=== PATIENT | female | born 1945 | race Caucasian/White ===

== ENCOUNTER 2016-10-06 06:12 | Day surgery (SDC) | payer MEDICARE, OTHER ==
[2016-10-06] MEDS ORDERED: Lactated Ringers 1,000 ML IV SCH (06:30)
[2016-10-06 08:49] VITALS: O2SAT 100
--- NOTE | 2016-10-06 09:30 | OP ---
SURGERY DATE: 10/06/16 SURGERY TIME: 755 PREOPERATIVE DIAGNOSIS: 1. RECTAL BLEEDING. POSTOPERATIVE DIAGNOSIS: 1. NORMAL COLON. PROCEDURE: 1. Colonoscopy. SURGEON: Dr. Rivera. ANESTHESIA: MAC. Medications given by the Anesthesia Department. BRIEF HISTORY: The patient is a 71 y/o WF presenting now for complaints of rectal bleeding. The patient was appraised of the risks of the procedure including the risk of perforation, phlebitis, untoward reaction to medication, bleeding, and missed lesions. The patient verbalized her understanding and desired to have the procedure performed. DESCRIPTION OF PROCEDURE: The patient was given the medications by the Anesthesia Department. She had continuous pulse oximetry, ECG monitoring, intermittent BP monitoring, and end tidal CO2 monitoring during the examination. She was placed in the left lateral decubitus position. A digital rectal examination was performed and revealed normal anal sphincter tone and no masses. The flexible Olympus pediatric colonoscope was used to intubate the rectum. A view of the colon was developed sequentially to the cecum. Upon insertion and withdrawal, including a retroflex view in the rectum, no mucosal lesions were encountered. The scope was removed from the patient who tolerated the procedure well and was sent back to OP recovery in good condition. The prep was noted to be fair to good.
[2016-10-06 09:49] VITALS: BP 133/68; PULSE 57
[2016-10-06] MEDS ORDERED: DIPRIVAN 200 MG/20 ML IV ONE (15:26)
[2016-10-06] MEDS ORDERED: Ketamine HCl 50 MG/ML IV ONE (15:26)
== END 2016-10-06 09:54 | disposition home or self-care (01) ==
LOC: SDC 06:12
PROVIDERS: ATTEND Family Medicine
PROC: 0DJD8ZZ Inspection of Lower Intestinal Tract, Via Natural or Artificial Opening Endoscopic (ICD-10-PCS; principal; 2016-10-06)
DX: K62.5 Hemorrhage of anus and rectum (principal)
CPT/HCPCS: 00810; 99100; J2704

== ENCOUNTER 2020-04-17 06:29 | Day surgery (SDC) | payer MEDICARE, OTHER ==
[2020-04-17] MEDS ORDERED: Lactated Ringers 1,000 ML IV ONE ×2 (06:37→09:26)
[2020-04-17] MEDS ORDERED: CEFAZOLIN 2 GM-D5W BAG** 2 GM/50 ML ML IV ONE (07:26)
[2020-04-17] MEDS ORDERED: CEFAZOLIN 2 GM-D5W BAG** 2 GM/50 ML ML IV SCH (07:30)
[2020-04-17] MEDS ORDERED: Lactated Ringers 1,000 ML IV SCH (08:00)
[2020-04-17] MEDS ORDERED: Decadron 4 MG INJ ONE (08:36)
[2020-04-17] MEDS ORDERED: TORAdol 30 mg Injection ONE (08:36)
[2020-04-17] MEDS ORDERED: SUBLIMAZE 100 MCG/2 ML ONE (08:36)
[2020-04-17] MEDS ORDERED: DIPRIVAN 200 MG/20 ML IV ONE (08:36)
[2020-04-17] MEDS ORDERED: Xylocaine-Mpf 2% 5 Ml Vial ONE (08:36)
[2020-04-17] MEDS ORDERED: Zofran 4 MG/2 ML VIAL ONE (08:36)
[2020-04-17] MEDS ORDERED: ASTRINGYN 8 GM TP ONE (09:26)
[2020-04-17] MEDS ORDERED: XYLOCAINE 1% HCL 20 ML MDV ONE (09:51)
[2020-04-17] MEDS ORDERED: XYLOCAINE 1%/Epi 1:100000 MDV 20 ML ONE (09:53)
[2020-04-17] MEDS ORDERED: Compazine 10 MG/2 ML ONE (09:58)
[2020-04-17] MEDS ORDERED: Compazine 10 MG/2 ML IV ONE (10:15)
[2020-04-17 10:24] VITALS: BP 144/79; PULSE 57; O2SAT 94
--- NOTE | 2020-04-18 08:12 | OP ---
SURGERY DATE/TIME: 04/17/2020 0838 PREOPERATIVE DIAGNOSIS: Postmenopausal bleeding and cervical dysplasia. POSTOPERATIVE DIAGNOSIS: Postmenopausal bleeding and cervical dysplasia. PROCEDURE: Hysteroscopy D&C with loop electrosurgical excision procedure. SURGEON: Horacio Villasenor D.O. CONSTRUCTION EXECUTIVE: meteorological technician. ANESTHESIA: General. ESTIMATED BLOOD LOSS: Minimal. COMPLICATIONS: None. INDICATIONS: The risks, benefits, indications and alternatives of the procedure were reviewed with the patient prior to procedure. The patient understood the risk of infection, bleeding, bowel injury, bladder injury, ureteral injury, uterine perforation or cervical stenosis associated with the surgery and desires to have this surgery as a possible need to alleviate her current medical condition. DESCRIPTION OF PROCEDURE AND FINDINGS: The patient is taken to the operating room, given general sedation, placed in dorsal lithotomy position. Prepped and draped in usual sterile fashion. A weighted speculum is then placed in the patient's vagina and the anterior lip of the cervix is grasped with a single tooth tenaculum. Endocervical dilators advanced to the endocervical canal as a means to dilate the cervix and a 5 mm hysteroscope was then placed into the endocervical canal where visualization of the endometrial cavity appeared to be within normal limits with no gross abnormalities. From this point the hysteroscope is then removed and a curette was then placed into the fundus of the uterus and curettage was performed in all quadrants of the uterus retrieving a mild to moderate amount of endometrial tissue. From this point hemostasis was obtained. All instruments were then removed from the patient's vaginal region at this point and a coated speculum was then replaced into the vaginal area where the cervix was then injected circumferentially with 1% lidocaine with epinephrine and approximately 8 cc was given. From this point the loop instrument was used to excise the ectocervical tissue in a right to left motion and a depth of 7 to 8 mm of cervical tissue was excised without complication. An additional 2 to 3 mm of endocervical tissue was excised in a similar fashion. From this point the deputy controller ball was used and placed on the surface of the cervix for further hemostasis. At this point Monsel solution was placed on the surface of the cervix at this time and all instruments were removed from the patient's vaginal region. The patient is then taken out of the dorsal lithotomy position, is taken out of the anesthesia and was taken to the recovery room in stable condition. All instruments and laps were accounted for x2.
== END 2020-04-17 10:47 | disposition home or self-care (01) ==
LOC: SDC 06:29
PROVIDERS: ATTEND Obstetrics & Gynecology
DX: N95.0 Postmenopausal bleeding (principal); N87.9 Dysplasia of cervix uteri, unspecified
CPT/HCPCS: 99100; J0690; J1100; J1885; J2405; J2704; J3010; A9270-GY

== ENCOUNTER 2021-09-25 12:22 | Day surgery (SDC) | payer MEDICARE, OTHER ==
[2021-09-25] MEDS ORDERED: Decadron 4 MG INJ IV ONE (12:23)
[2021-09-25] MEDS ORDERED: Sodium Chloride 0.9% 10 ML FLUSH Syringe IJ ONE (12:23)
[2021-09-25] MEDS ORDERED: Xylocaine 1% Vial 30 ML PF IJ ONE (12:23)
[2021-09-25] MEDS ORDERED: Lactated Ringers 1,000 ML IV ONE (14:53)
--- NOTE | 2021-09-25 16:42 | XRAY ---
Indication: Cervical VIJAYA. Intraoperative fluoroscopy provided for 33 seconds. 2 digital spot image submitted for interpretation demonstrates midline posterior needle tip projecting posterior to the cervical thoracic junction. Small amount of contrast injected for needle tip placement. Correlate with intraoperative findings/report.
--- NOTE | 2021-09-25 16:47 | XRAY ---
33 seconds of fluoroscopy was used in surgery for a cervical VIJAYA.
== END 2021-09-25 15:45 | disposition home or self-care (01) ==
LOC: SDC-PAIN 12:22
PROVIDERS: ATTEND Psychiatry & Neurology Pain Medicine
DX: M54.12 Radiculopathy, cervical region (principal); Z79.899 Other long term (current) drug therapy
CPT/HCPCS: 62321; 72040; 77003; J1100; J2001; Q9966

== ENCOUNTER 2022-03-20 06:16 | Day surgery (SDC) | payer MEDICARE, OTHER ==
[2022-03-20] MEDS ORDERED: Lactated Ringers 1,000 ML IV SCH (06:30)
[2022-03-20] MEDS ORDERED: Lactated Ringers 1,000 ML IV ONE (06:56)
[2022-03-20] MEDS ORDERED: Xylocaine-Mpf 2% 5 Ml Vial ONE (07:52)
[2022-03-20] MEDS ORDERED: DIPRIVAN 200 MG/20 ML IV ONE (07:52)
[2022-03-20 09:18] VITALS: BP 188/78; PULSE 62; O2SAT 97
--- NOTE | 2022-03-20 10:43 | OP ---
SURGERY DATE/TIME: 03/20/2022 0802 PREOPERATIVE DIAGNOSIS: Rectal bleeding. POSTOPERATIVE DIAGNOSES: 1) Normal colon. 2) Diverticulosis. PROCEDURE: Diagnostic colonoscopy. SURGEON: Alfred Dalal M.D. ANESTHESIA: MAC by Didier Tenorio CRNA. ESTIMATED BLOOD LOSS: None. SPECIMENS: None. DESCRIPTION OF PROCEDURE: After informed written consent was obtained, the patient was taken to the endoscopy suite. She was placed in left lateral decubitus position and anesthesia was titrated to desired level of consciousness. Digital rectal exam showed normal sphincter tone and no internal lesions. The scope was inserted into the rectum and sequentially the entire colonic mucosa was traversed. The level of cecum was reached and verified with direct visualization of the ileocecal valve. Upon withdrawal there were scattered diverticula but no other mucosal abnormalities. Retroflexion was performed and show no internal lesions prior to withdrawal. The scope was removed and the patient was transferred to the recovery room in good condition.
== END 2022-03-20 09:18 | disposition home or self-care (01) ==
LOC: SDC 06:16
PROVIDERS: ATTEND Family Medicine
DX: K57.30 Diverticulosis of large intestine without perforation or abscess without bleeding (principal); K62.5 Hemorrhage of anus and rectum
CPT/HCPCS: 99100; J2704